=== PATIENT | female | born 2000 | race Two or more races ===

== ENCOUNTER 2022-08-04 00:13 | Emergency (ER) | payer SELFPAY ==
[2022-08-04 00:28] VITALS: BP 106/68; PULSE 74; RESP 18; TEMP 98.4; BMI 20.5
[2022-08-04] MEDS ORDERED: LIDOCAINE VISCOUS 2% ORAL/TOP 15 ML UNIT-DOSE CUP MM ONE (01:26)
== END 2022-08-04 01:48 | disposition left against medical advice (07) ==
LOC: JER 00:13
DX: S01.511A Laceration without foreign body of lip, initial encounter (principal); W07.XXXA Fall from chair, initial encounter; Y93.I9 Activity, other involving external motion; Y92.511 Restaurant or cafe as the place of occurrence of the external cause
CPT/HCPCS: 99282-25